=== PATIENT | male | born 2000 | race Caucasian/White ===

== ENCOUNTER 2024-04-28 23:54 | Emergency (ER) | payer OTHER ==
[2024-04-29] MEDS ORDERED: LIDOCAINE 1% 20 ML MDV ONE (00:06)
--- NOTE | 2024-04-29 01:51 | EDPHYS ---
Physician Documentation [facility] Name: Joe Espinal Age: 23 yrs Sex: Male : 2000 Arrival Date: 04/28/2024 Time: 23:54 Bed 5 Private MD: ED Physician Vincent Sanches HPI: 04/29 00:36 This 23 yrs old Male presents to ER via Ambulatory with complaints of ec2 Laceration To Head. 00:36 Patient arrives today for evaluation after head injury. States that he was walking ec2 subsequently fell and tripped and injured his right forehead. Patient planing of a wound to the area. No LOC, no blood thinners. Patient denies any other concerns.. Historical: - Allergies: 00:01 No Known Allergies; bm8 - Home Meds: 00:01 None [Active]; bm8 - PMHx: 00:01 None; bm8 - Immunization history:: Adult Immunizations up to date, Last tetanus immunization: up to date. - Infectious Disease History:: Denies. - Social history:: Smoking status: Patient denies any tobacco usage or history of. Patient uses alcohol, only on a social basis. ROS: 00:36 Constitutional: as per hpi ec2 Exam: 00:36 Constitutional: GEN: NAD Head: atraumatic Eyes: EOMI Ears: External ears are ec2 normal. CV: regular rate LUNGS: no respiratory distress ABD: non-distended SKIN: 4 cm wound to the right forehead extending from the distal eyebrow towards the middle of the forehead. MSK: no evidence of trauma NEURO: moves all extremities equally Vital Signs: 00:00 BP 157 / 96; Pulse 76; Resp 17; Temp 98.6; Pulse Ox 99% ; Weight 90.72 kg; Height 6 ft. bm8 0 in. ; Pain 6/10; 00:11 BP 160 / 78; Pulse 93; Resp 16; Pulse Ox 100% on R/A; kd3 01:19 BP 98 / 87; Pulse 65; Resp 17; Pulse Ox 99% on R/A; kd3 01:51 BP 118 / 74; Pulse 76; Resp 19; Pulse Ox 98% on R/A; kd3 00:00 Body Mass Index 27.12 (90.72 kg, 182.88 cm) bm8 00:00 Pain Scale: Adult bm8 Laceration: 00:35 Wound Repair of 4cm ( 1.6in ) subcutaneous laceration to face. Distal ec2 neuro/vascular/tendon intact. Anesthesia: Local anesthetic administered with 7 mls of 1% lidocaine. Wound prep: Moderate cleansing by endoscopy technician. Skin closed with 8 3-0 Prolene using simple sutures and sterile technique. Patient tolerated well. MDM: 04/28 23:57 Patient medically screened. ec2 04/29 00:36 Data reviewed: vital signs. ED course: Patient arrives today for evaluation of a head ec2 injury. Examination remarkable for skin findings as noted above. Will obtain CT scan of the head. Differential diagnose include intracranial brain bleed, facial bone fracture, laceration.. 00:37 ED course: I performed anesthesia to the wound and repaired it with simple interrupted ec2 sutures without issue. Pending CT imaging. Patient reports he is up-to-date on his tetanus status, will forego this. 01:50 ED course: CT scan of the head independently reviewed and interpreted by me, shows no ec2 acute intracranial injury.. 01:51 ED course: MDM: Differential diagnosis as documented above in ED course Independent ec2 interpretation of imaging: CToH as above. 04/29 00:11 Order name: CT Head Brain wo Cont ec2 04/29 00:02 Order name: Dressing - Wound; Complete Time: 02:00 ec2 04/29 00:02 Order name: Prolene, Sutures; Complete Time: 00:09 ec2 04/29 00:02 Order name: Setup Suture Tray; Complete Time: 00:09 ec2 Administered Medications: 00:09 Drug: Lidocaine Infiltration (1 %) 20 ml 20 ml Infiltration once; to bedside Volume: 20 kd3 ml; Route: Infiltration; Disposition Summary: 04/29/24 01:51 Discharge Ordered Condition: Stable ec2 Diagnosis - Scalp Laceration/ Open wound of scalp ec2 - Unspecified injury of head, initial encounter ec2 - Concussion without loss of consciousness ec2 Followup: ec2 - With: Private Physician - When: - Reason: Re-evaluation by your physician Discharge Instructions: - Discharge Summary Sheet ec2 - Facial Laceration, [id number] ec2 Forms: - Medication Reconciliation Form ec2 - Antibiotic Education ec2 - Prescription Opioid Use ec2 - Patient Portal Instructions ec2 - Leadership Thank You Letter ec2 Signatures: Dispatcher [employer] Shanna So, RN RN kd3 Vincent Sanches MD MD ec2 Heriberto Coleman RN RN bm8 Corrections: (The following items were deleted from the chart) 00:11 00:11 Head Brain Wo Cont+[id number].RAD.[email or web address] ordered. EDMS EDMS
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
[2024-04-29 03:08] VITALS: BP 118/74; TEMP 98.6; O2SAT 98
--- NOTE | 2024-04-29 10:55 | RAD REPORT ---
EXAM DESCRIPTION: CT Head Without Intravenous Contrast CLINICAL HISTORY: Head injury TECHNIQUE: Axial computed tomography images of the head/brain without intravenous contrast. Sagitt al and coronal reformatted images were created and reviewed. This CT exam was performed using one o r more of the following dose reduction techniques: automated exposure control, adjustment of the mA and/or kV according to patient size, and/or use of iterative reconstruction technique. COMPARISON: No relevant prior studies available. FINDINGS: Brain: Unremarkable. No hemorrhage. No significant white matter disease. No edema. Ventricles: Unremarkable. No ventriculomegaly. Bones/joints: Unremarkable. No acute fracture. Soft tissues: Moderate right supraorbital soft tissue contusion and adjacent laceration. Sinuses: Unremarkable as visualized. No acute sinusitis. Mastoid air cells: Unremarkable as visualized. No mastoid effusion. IMPRESSION: No acute intracranial or extra-axial abnormality. Electronically signed by: Josiane Reeves MD 04/29/2024 01:42 AM CDT RP Due to temporary technical issues with the PACS/Fluency reporting system, reports are being signed by the in house radiologist without review as a courtesy to ensure prompt reporting. The interpreting r adiologist is fully responsible for the content of the report.
== END 2024-04-29 02:01 | disposition home or self-care (01) ==
LOC: ER 23:54
PROC: 0HQ1XZZ Repair Face Skin, External Approach (ICD-10-PCS; principal; 2024-04-29)
DX: S01.81XA Laceration without foreign body of other part of head, initial encounter (principal); S06.0X0A Concussion without loss of consciousness, initial encounter
CPT/HCPCS: 70450; 99283; 12013; J2001